=== PATIENT | female | born 1995 | race Caucasian/White ===

== ENCOUNTER → 2018-05-14 11:39 | Outpatient (CLI) | payer MEDICAID, SELFPAY ==
[2018-05-14 15:47] LABS: Color, Urine Yellow (Yellow); Glucose, Dipstick Normal (Normal); Ketone-Dipstick Negative (Negative); Leukocyte Esterase-Dipstick Negative /ul (Negative); Nitrite-Dipstick Negative (Negative); Occult Blood-Urine Negative /ul (Negative); Protein-Dipstick Negative (Negative); Urine Bilirubin Dipstick Negative (Negative); Urine Clarity Sl. Cloudy (Clear); Urine Urobilinogen Normal (Normal)
[2018-05-14 16:05] LABS: Amphetamine Urine VISTA NEGATIVE (<1000 ng/mL); Barbiturate Urine VISTA NEGATIVE (< 200 ng/mL); Benzodiazepine Urine VISTA NEGATIVE (< 200 ng/mL); Cocaine Urine VISTA NEGATIVE (< 300 ng/mL); Ecstacy Urine VISTA NEGATIVE (< 500 ng/mL); Methadone Urine VISTA NEGATIVE (< 300 ng/mL); PCP Urine VISTA NEGATIVE (< 25 ng/mL); THC Urine VISTA POSITIVE (< 50 ng/mL); Vista UDS pH Range 7
[2018-05-14 16:22] LABS: COTININE Drug Screen Positive (<200 ng/mL)
[2018-05-14 16:54] LABS: HIV - WCH Non-Reactive (Nonreactive)
[2018-05-14 17:02] LABS: Thyroid Stim Hormone (TSH) 0.97 uIU/mL (0.358-3.74)
[2018-05-14 17:51] LABS: Chlamydia Trachomatis by PCR Negative (Negative); Neisserai gonorrhoeae by PCR Negative (Negative); Probe Check PASS; Sample Adequacy Control PASS; Specimen Processing Control PASS
[2018-05-16 13:31] LABS: HEPATITIS B SURFACE AG Negative (Negative)
[2018-05-16 13:32] LABS: Hep C Antibodies <0.1 s/co ratio (0.0-0.9)
[2018-05-19 12:13] LABS: HPV Reflexed? NOT INDICATED
[2018-05-21 02:28] LABS: Prenatal RPR NONREACTIVE (NONREACTIVE)
== END ==
PROVIDERS: Visit Provider Obstetrics & Gynecology
DX: Z12.4 Encounter for screening for malignant neoplasm of cervix (principal); Z11.3 Encounter for screening for infections with a predominantly sexual mode of transmission; Z32.01 Encounter for pregnancy test, result positive
CPT/HCPCS: 36415; 80307; 81002; 84443; 86703; 86762; 86803; 87340; 87491; 87591; 88175; G0145

== ENCOUNTER → 2018-08-10 11:38 | Outpatient (CLI) | payer SELFPAY ==
[2018-08-10 14:07] LABS: ALB/GLOB Ratio 0.8 RATIO (0.9-2.4); AST(SGOT) 17 U/L (15-37); Alanine Aminotransfer ALT/SGPT 19 U/L (13-56); Albumin, Serum 3.4 g/dL (3.2-5.0); Alkaline Phosphatase 64 U/L (45-117); Anion Gap 10 (5-15); BUN 5 mg/dL (7-18); BUN/Creat Ratio 10.5 RATIO (10-20); Calcium,Total 8.9 mg/dL (8.5-10.1); Chloride 108 mmol/L (98-107); Creatinine, Serum 0.47 mg/dL (0.55-1.02); EST Glomerular Filtration Rate 170 mL/min (>60); Est Glom Filt Rate - Afr Amer 206 mL/min (>60); Glucose 75 mg/dL (74-106); Potassium 3.6 mmol/L (3.5-5.1); Protein, Total 7.4 g/dL (6.4-8.2); Sodium Level 140 mmol/L (136-145)
== END ==
PROVIDERS: Visit Provider Obstetrics & Gynecology
DX: Z34.82 Encounter for supervision of other normal pregnancy, second trimester (principal); R10.11 Right upper quadrant pain; R11.2 Nausea with vomiting, unspecified
CPT/HCPCS: 36415; 80053

== ENCOUNTER → 2018-10-20 10:27 | Outpatient (CLI) | payer MEDICAID, SELFPAY ==
[2018-10-20 14:01] LABS: Glucose Challenge Gest 1H 50g 72 mg/dL (70-140)
[2018-10-20 14:06] LABS: Hematocrit 38.3 % (37-47); Hemoglobin 12.3 g/dl (12.0-15.0); Mean Corp Hgb Conc 32.1 g/gl (32-36); Mean Corpuscular Hgb 30.9 pg (27.0-32.0); Mean Corpuscular Volume 96.2 fL (81-99); Mean Platelet Vol. 9.6 fl (6.2-12.0); Platelet Count 352 K/mm3 (150-450); RBC Distribution Width CV 12.5 % (11.6-14.6); RBC Distribution Width SD 42.7 fl (35.1-43.9); Red Blood Count 3.98 M/mm3 (4.2-5.4); White Blood Count 12.6 K/mm3 (4.4-11.0)
[2018-10-20 14:07] LABS: Scan Indicated on CBC? Y/N NO
[2018-10-20 14:15] LABS: Amphetamine Urine VISTA NEGATIVE (<1000 ng/mL); Barbiturate Urine VISTA NEGATIVE (< 200 ng/mL); Benzodiazepine Urine VISTA NEGATIVE (< 200 ng/mL); Cocaine Urine VISTA NEGATIVE (< 300 ng/mL); Ecstacy Urine VISTA NEGATIVE (< 500 ng/mL); Methadone Urine VISTA NEGATIVE (< 300 ng/mL); PCP Urine VISTA NEGATIVE (< 25 ng/mL); THC Urine VISTA POSITIVE (< 50 ng/mL); Vista UDS pH Range 6
== END ==
PROVIDERS: Visit Provider Obstetrics & Gynecology
DX: Z34.83 Encounter for supervision of other normal pregnancy, third trimester (principal)
CPT/HCPCS: 36415; 80307; 82950; 85027; 86900

== ENCOUNTER 2018-11-18 16:50 | Outpatient (CLI) | payer MEDICAID, SELFPAY ==
[2018-11-18 17:19] VITALS: BMI 28.5
[2018-11-18 17:45] LABS: Bacteria 0 SEEN /hpf (None Seen); Mucous, Urine 0 SEEN /hpf (<or=2+); Red Blood Cells-Urine 0 SEEN /hpf (0-5); White Blood Cells 0 SEEN /hpf (0-5)
[2018-11-18 17:47] LABS: Color, Urine Yellow (Yellow); Glucose, Dipstick Normal (Normal); Ketone-Dipstick Negative (Negative); Leukocyte Esterase-Dipstick 25 /ul (Negative); Nitrite-Dipstick Negative (Negative); Occult Blood-Urine Negative /ul (Negative); Protein-Dipstick Negative (Negative); Specific Gravity, Urine 1.015 (1.002-1.030); Urine Bilirubin Dipstick Negative (Negative); Urine Clarity Cloudy (Clear); Urine Urobilinogen 4 mg/dl (Normal)
[2018-11-18 17:52] LABS: Squamous Epithelial Cells - UA 0-5 SEEN /hpf (5-10)
[2018-11-18 17:53] LABS: Amorphous Sediment 4+
--- NOTE | 2018-11-30 08:16 | OB.TRI.HP_ITS ---
- Problem List (1) Urinary tract infection Status: Acute Qualifiers: Urinary tract infection type: acute cystitis Hematuria presence: without hematuria Qualified Code(s): N30.00 - Acute cystitis without hematuria History of Present Illness Date of Service: 11/18/18 Was patient seen by the physician?: Yes Reason For Visit: R/O LABOR Date of Service: 11/18/18 Final GAVIN: 12/23/18 Final GAVIN Source: US <20 weeks Gestational age: 35 weeks History of Present Illness: 23yo @ 35wga with c/o lower abdominal and back pain. Allergies No Known Allergies Allergy (Verified 11/25/18 21:55) Laboratory Studies: Laboratory Tests 11/18/18 Range/Units 17:30 Urine Color Yellow (Yellow) Urine Clarity Cloudy (Clear) Urine pH 7.0 (5.0 - 8.0) Ur Specific [place] 1.015 (1.002-1.030) Urine Protein Negative (Negative) mg/dl Urine Glucose (UA) Normal (Normal) mg/dl Urine Ketones Negative (Negative) mg/dl Urine Occult Blood Negative (Negative) /ul Urine Nitrite Negative (Negative) Urine Bilirubin Negative (Negative) mg/dL Urine Urobilinogen 4 H (Normal) mg/dl Ur Leukocyte Esterase 25 H (Negative) /ul Urine RBC 0 SEEN (0-5) /hpf Urine WBC 0 SEEN (0-5) /hpf Ur Squamous Epith Cells 0-5 SEEN (5-10) /hpf Amorphous Sediment 4+ Urine Bacteria 0 SEEN (None Seen) /hpf Urine Mucus 0 SEEN (<or=2+) /hpf Review of Systems Constitutional: Reports: Fatigue. Denies: Fever Cardiovascular: Denies: Chest Pain, Edema Respiratory: Denies: Shortness of Breath Gastrointestinal: Reports: Abdominal Pain, Nausea. Denies: Vomiting Genitourinary: Reports: Frequency. Denies: Dysuria Physical Exam General: Alert, Oriented x3, Cooperative, No apparent distress HEENT: Atraumatic, Normocephalic Cardiovascular: Regular rate, Regular Rhythm, Normal S1, Normal S2 Lungs: Clear to auscultation, Normal air movement Abdomen: Soft, Non Tender, Non-Distended, Gravid, - - +CVA tenderness Extremities:: No edema Neurological: Neuro grossly intact Estimated gestational size: Appropriate for gestational size NST - FHR Rate Baby A Baseline: 140 Variability:: Moderate Accelerations:: 15 x 15 NST Reactive:: Yes FHR Category:: Category I Uterine Activity:: 1/10 min Impression/Plan 23yo @ 35 wga with UTI -U/A neg, however exam c/w UTI, f/u culture -Reactive NST -Rx Keflex -f/u in office as scheduled Code Visit Office Visits / Consults: [id number] OV L3 Est
== END 2018-11-18 18:00 | disposition home or self-care (01) ==
LOC: WPOUT 17:05 → WP 17:06
PROVIDERS: Referring Provider Obstetrics & Gynecology; Visit Provider Obstetrics & Gynecology
DX: O23.13 Infections of bladder in pregnancy, third trimester (principal); N30.00 Acute cystitis without hematuria; Z3A.35 35 weeks gestation of pregnancy
CPT/HCPCS: 59025; 59050; 81001; 87086; 87088; 99218; G0378

== ENCOUNTER → 2018-11-25 17:50 | Outpatient (CLI) | payer MEDICAID, SELFPAY ==
[2018-11-18 17:19] VITALS: BMI 28.5
== END ==
PROVIDERS: Referring Provider Obstetrics & Gynecology; Visit Provider Obstetrics & Gynecology
DX: Z36.85 Encounter for antenatal screening for Streptococcus B (principal)
CPT/HCPCS: 87081

== ENCOUNTER 2018-11-25 21:15 | Outpatient (CLI) | payer MEDICAID, SELFPAY ==
[2018-11-25 21:45] LABS: Red Blood Cells-Urine 0 SEEN /hpf (0-5)
[2018-11-25 21:47] LABS: Color, Urine Yellow (Yellow); Glucose, Dipstick Normal (Normal); Leukocyte Esterase-Dipstick 500 /ul (Negative); Nitrite-Dipstick Negative (Negative); Occult Blood-Urine Negative /ul (Negative); Protein-Dipstick 30 mg/dl (Negative); Urine Clarity Sl. Cloudy (Clear); Urine Urobilinogen 4 mg/dl (Normal)
[2018-11-25 21:53] VITALS: BMI 29.0
[2018-11-25 21:58] LABS: Urine Bilirubin Dipstick 1 mg/dL (Negative)
[2018-11-25 21:59] LABS: Bacteria RARE /hpf (None Seen); Ketone-Dipstick 150 mg/dl (Negative); Mucous, Urine 1+ /hpf (<or=2+); Squamous Epithelial Cells - UA 5-10 SEEN /hpf (5-10); White Blood Cells 0-5 SEEN /hpf (0-5)
[2018-11-25 22:14] LABS: ROM Internal Control Test YES-OK TO RESULT pt. (Internal QC); ROM Patient Test Negative (Negative); Record Kit Lot#, ROM+ J7836
[2018-11-25] MEDS: Acetaminophen 500 MG Tablet 1000 MG PO (22:45)
[2018-11-25 22:52] LABS: Absolute Lymphocyte Count 2.27 X10^3/ul (0.83-4.51); Absolute Neutrophil Count 10.6 X10^3/uL (2.0-7.7); Basophil# 0.02 X10^3/uL; Basophil% 0.1 % (0-1); Eosinophil# 0.05 X10^3/uL; Eosinophils% 0.4 % (0-5); Hematocrit 35.3 % (37-47); Hemoglobin 11.6 g/dl (12.0-15.0); Lymphocyte # 2.27 X10^3/ul (4.0); Lymphocyte % 16.3 % (19-41); Mean Corp Hgb Conc 32.9 g/gl (32-36); Mean Corpuscular Hgb 30.4 pg (27.0-32.0); Mean Corpuscular Volume 92.7 fL (81-99); Mean Platelet Vol. 9.3 fl (6.2-12.0); Monocyte# 0.88 X10^3/uL; Monocyte% 6.3 % (0-10); Neutrophil # 10.64 X10^3/uL (2.7-7.7); Neutrophil % 76.7 % (47-70); Platelet Count 319 K/mm3 (150-450); RBC Distribution Width CV 13.2 % (11.6-14.6); RBC Distribution Width SD 44.6 fl (35.1-43.9); Red Blood Count 3.81 M/mm3 (4.2-5.4); White Blood Count 13.9 K/mm3 (4.4-11.0)
[2018-11-25 22:55] LABS: POSITIVE COUNT NO; POSITIVE DIFFERENTIAL NO; POSITIVE MORPHOLOGY NO
[2018-11-25 23:07] LABS: ALB/GLOB Ratio 0.8 RATIO (0.9-2.4); AST(SGOT) 13 U/L (15-37); Alanine Aminotransfer ALT/SGPT 13 U/L (13-56); Albumin, Serum 2.9 g/dL (3.2-5.0); Alkaline Phosphatase 118 U/L (45-117); Anion Gap 7 (5-15); BUN 10 mg/dL (7-18); BUN/Creat Ratio 18.2 RATIO (10-20); Calcium,Total 8.5 mg/dL (8.5-10.1); Chloride 106 mmol/L (98-107); Creatinine, Serum 0.55 mg/dL (0.55-1.02); EST Glomerular Filtration Rate 143 mL/min (>60); Est Glom Filt Rate - Afr Amer 173 mL/min (>60); Estimated Creatinine Clearance 123.67 ml/min; Globulin 3.8 g/dL (2.2-4.2); Glucose 83 mg/dL (74-106); Potassium 3.3 mmol/L (3.5-5.1); Protein, Total 6.7 g/dL (6.4-8.2); Sodium Level 137 mmol/L (136-145)
[2018-11-25] MEDS: Dextrose 5%/0.9% NaCl 1,000 ML 250 ML IV (23:10)
--- NOTE | 2018-11-30 08:33 | OB.TRI.HP_ITS ---
- Problem List (1) Dehydration during Status: Acute (2) 36 weeks gestation of Status: Acute (3) Decreased movement Status: Acute Qualifiers: Trimester: third trimester History of Present Illness Date of Service: 11/25/18 Was patient seen by the physician?: No Reason For Visit: DF Final GAVIN: 12/23/18 Final GAVIN Source: US <20 weeks Gestational age: 36 Weeks and 0 Days History of Present Illness: 23yo G2 @ 36wga with c/o decreased movement, achiness, lower abdominal and back pain. Allergies No Known Allergies Allergy (Verified 11/25/18 21:55) Laboratory Studies: Laboratory Tests 11/25/18 11/25/18 11/25/18 Range/Units 22:37 22:37 21:42 WBC 13.9 H (4.4-11.0) K/mm3 RBC 3.81 L (4.2-5.4) M/mm3 Hgb 11.6 L (12.0-15.0) g/dl Hct 35.3 L (37-47) % MCV 92.7 (81-99) fL MCH 30.4 (27.0-32.0) pg MCHC 32.9 (32-36) g/gl RDW 13.2 (11.6-14.6) % RDW Differential 44.6 H (35.1-43.9) fl Plt Count 319 (150-450) K/mm3 MPV 9.3 (6.2-12.0) fl Immature Gran % (Auto) 0.200 (0.0-0.9) % Neut % (Auto) 76.7 H (47-70) % Lymph % (Auto) 16.3 L (19-41) % [place] % (Auto) 6.3 (0-10) % Eos % (Auto) 0.4 (0-5) % Baso % (Auto) 0.1 (0-1) % Absolute Neuts (auto) 10.6 H (2.0-7.7) X10^3/uL Absolute Lymphs (auto) 2.27 (0.83-4.51) X10^3/ul Total Counted Not Reportable Sodium 137 (136-145) mmol/L Potassium 3.3 L (3.5-5.1) mmol/L Chloride 106 (98-107) mmol/L Carbon Dioxide 24.0 (21.0-32.0) mmol/L Anion Gap 7 (5-15) BUN 10 (7-18) mg/dL Creatinine 0.55 (0.55-1.02) mg/dL Estim Creat Clear Calc 123.67 ml/min Est GFR (MDRD) Af Amer 173 (>60) mL/min Est GFR (MDRD) Non-Af 143 (>60) mL/min BUN/Creatinine Ratio 18.2 (10-20) RATIO Glucose 83 (74-106) mg/dL Calcium 8.5 (8.5-10.1) mg/dL Total Bilirubin 0.30 (0.20-1.00) mg/dL AST 13 L (15-37) U/L ALT 13 (13-56) U/L Alkaline Phosphatase 118 H (45-117) U/L Total Protein 6.7 (6.4-8.2) g/dL Albumin 2.9 L (3.2-5.0) g/dL Globulin 3.8 (2.2-4.2) g/dL Albumin/Globulin Ratio 0.8 L (0.9-2.4) RATIO Urine Color (Yellow) Urine Clarity (Clear) Urine pH (5.0 - 8.0) Ur Specific [place] (1.002-1.030) Urine Protein (Negative) mg/dl Urine Glucose (UA) (Normal) mg/dl Urine Ketones (Negative) mg/dl Urine Occult Blood (Negative) /ul Urine Nitrite (Negative) Urine Bilirubin (Negative) mg/dL Urine Urobilinogen (Normal) mg/dl Ur Leukocyte Esterase (Negative) /ul Urine RBC (0-5) /hpf Urine WBC (0-5) /hpf Ur Squamous Epith Cells (5-10) /hpf Urine Bacteria (None Seen) /hpf Urine Mucus (<or=2+) /hpf Vag Amniotic Fld Detect Negative (Negative) 11/25/18 Range/Units 21:30 WBC (4.4-11.0) K/mm3 RBC (4.2-5.4) M/mm3 Hgb (12.0-15.0) g/dl Hct (37-47) % MCV (81-99) fL MCH (27.0-32.0) pg MCHC (32-36) g/gl RDW (11.6-14.6) % RDW Differential (35.1-43.9) fl Plt Count (150-450) K/mm3 MPV (6.2-12.0) fl Immature Gran % (Auto) (0.0-0.9) % Neut % (Auto) (47-70) % Lymph % (Auto) (19-41) % [place] % (Auto) (0-10) % Eos % (Auto) (0-5) % Baso % (Auto) (0-1) % Absolute Neuts (auto) (2.0-7.7) X10^3/uL Absolute Lymphs (auto) (0.83-4.51) X10^3/ul Total Counted Sodium (136-145) mmol/L Potassium (3.5-5.1) mmol/L Chloride (98-107) mmol/L Carbon Dioxide (21.0-32.0) mmol/L Anion Gap (5-15) BUN (7-18) mg/dL Creatinine (0.55-1.02) mg/dL Estim Creat Clear Calc ml/min Est GFR (MDRD) Af Amer (>60) mL/min Est GFR (MDRD) Non-Af (>60) mL/min BUN/Creatinine Ratio (10-20) RATIO Glucose (74-106) mg/dL Calcium (8.5-10.1) mg/dL Total Bilirubin (0.20-1.00) mg/dL AST (15-37) U/L ALT (13-56) U/L Alkaline Phosphatase (45-117) U/L Total Protein (6.4-8.2) g/dL Albumin (3.2-5.0) g/dL Globulin (2.2-4.2) g/dL Albumin/Globulin Ratio (0.9-2.4) RATIO Urine Color Yellow (Yellow) Urine Clarity Sl. Cloudy (Clear) Urine pH 6.0 (5.0 - 8.0) Ur Specific [place] 1.020 (1.002-1.030) Urine Protein 30 H (Negative) mg/dl Urine Glucose (UA) Normal (Normal) mg/dl Urine Ketones 150 H (Negative) mg/dl Urine Occult Blood Negative (Negative) /ul Urine Nitrite Negative (Negative) Urine Bilirubin 1 H (Negative) mg/dL Urine Urobilinogen 4 H (Normal) mg/dl Ur Leukocyte Esterase 500 H (Negative) /ul Urine RBC 0 SEEN (0-5) /hpf Urine WBC 0-5 SEEN (0-5) /hpf Ur Squamous Epith Cells 5-10 SEEN (5-10) /hpf Urine Bacteria RARE (None Seen) /hpf Urine Mucus 1+ (<or=2+) /hpf Vag Amniotic Fld Detect (Negative) Physical Exam Vitals: avss NST - FHR Rate Baby A Baseline: 130 Variability:: Moderate Accelerations:: 15 x 15 Decelerations:: None NST Reactive:: Yes FHR Category:: Category I Uterine Activity:: 0-1/10 min Impression/Plan 23yo @ 36wga with dehydration, Cat I FHR -FM noted with rest -IVF hydration administered -d/c home
== END 2018-11-25 23:57 | disposition home or self-care (01) ==
LOC: WPOUT 21:27 → WP 21:28
PROVIDERS: Visit Provider Obstetrics & Gynecology
DX: O99.89 Other specified diseases and conditions complicating pregnancy, childbirth and the puerperium (principal); E86.0 Dehydration; O36.8130 Decreased fetal movements, third trimester, not applicable or unspecified; Z3A.36 36 weeks gestation of pregnancy; Z36.85 Encounter for antenatal screening for Streptococcus B
CPT/HCPCS: 96360; 96361; 36415; 59025; 59050; 80053; 81001; 84112; 85025; 87081; 94760; 99218; J7040; G0378

== ENCOUNTER 2018-12-08 16:30 | Inpatient (IN) | payer MEDICAID, SELFPAY ==
[2018-12-08] VITALS (16 sets, daily range): BP systolic 104–124; BP diastolic 64–71; PULSE 88–102; RESP 16–18; TEMP 36.3–37.7; O2SAT 97–100; BMI 27.1
--- NOTE | 2018-12-08 17:10 | PCM.HP.OB ---
- Problem List (1) 37 weeks gestation of Status: Acute (2) IUGR (intrauterine growth restriction) Status: Acute (3) Decreased movement Status: Acute Qualifiers: Trimester: third trimester History Date of Admission: 12/12/15 Final GAVIN: 12/23/18 Final GAVIN Source: US <20 weeks Gestational age: 37 Weeks and 6 Days History of this : This is a 23 year-old, G [2], P [1], at 37 6/7 weeks gestational age with c/o decreased movement. complicated by IUGR with hx retroplacental clot. Surgical History: Surgical History (Last Updated 12/08/18 @ 17:24 by Christa Mcneal MD) Previous section Z98.891 Allergies No Known Allergies Allergy (Verified 12/08/18 16:43) Home Medications: Home Medications RX: Pnv No.103/Folic/Om3s/Fish Oil [ Gummies] 1 each PO DAILY 11/26/15 Smoking Status: Current every day smoker Alcohol: None Number of Fetus(es): 1 Heart Tracin, moderate variability, + accelerations, no decelerations TOCO Analysis: 2/10 min History Past Pregnancies: Past Pregnancies Delivery Date Name GA/Weeks Outcome Route Weight Gender Labor Length Anesthesia Delivery Location Provider FOB 12/13/2015 Dipesh 39 Living C/S 6lb 11oz MALE 48 Epidural [facility] Charitopaulina Torres Labs: Mom's Problem List Problem Status Onset Code Encounter for sterilization Acute Z30.2 Decreased movement Acute O36.8190 37 weeks gestation of Acute Z3A.37 IUGR (intrauterine growth restriction) Acute Mom's Labs & Results 12/08/18 12/08/18 12/08/18 17:25 17:25 18:00 WBC 12.6 H RBC 4.08 L Hgb 12.6 Hct 38.0 MCV 93.1 MCH 30.9 MCHC 33.2 RDW 13.3 RDW Differential 45.1 H Plt Count 360 MPV 9.5 Immature Gran % (Auto) 0.200 Neut % (Auto) 77.7 H Lymph % (Auto) 14.7 L [place] % (Auto) 7.0 Eos % (Auto) 0.2 Baso % (Auto) 0.2 Absolute Neuts (auto) 9.8 H Absolute Lymphs (auto) 1.85 Total Counted Not Reportable Rubella IgG Antibody 83.9 Blood Type B POSITIVE Antibody Screen NEGATIVE Course Did the patient receive Yes care? Labs Blood Type: B RH: POSITIVE RPR/VDRL/Syphilis Nonreactive HbSAg Negative Date Done: 05/14/18 Chlamydia Negative Gonorrhea Negative HIV/AIDS Non-Reactive Group B Strep: Negative Other Lab Procedures/Results/ Rubella not done. Will draw on admission Comments: Current Obstetrical History Gestational Diabetes No Incompetent Cervix No Infertility No IUGR Yes Macrosomia No Hypertension/Pre-eclampsia No Placenta Previa/Abruption Yes: at beginning of PTL/PROM No Uterine anomaly No Oligohydramnios No Polyhydramnios No Multiple gestation No Past Medical History Asthma No Diabetes No Hypertension No Heart disease No Mitral valve prolapse No Neurologic/Seizure disorder/ No Migraines Kidney disease No Liver disease No Varicosities No Clotting disorders/Hx of DVT No Thyroid Dysfunction No Other medical diseases No Psychiatric disorders Yes: anxiety-no meds Major trauma No Abnormal PAP smear No Sleep apnea No Mammogram in the last 2 years No Enter DETAILS of medical bloot clot behind placenta history Medications Taken During Last Date/Time of Medication 11/24 Taken: [keflex] Reason for taking medication [ antibiotics for UTI keflex] Social History Marital Status: SINGLE Alleged father Brian Tuttle, age 22 Hx Smoking Yes Smoking Status Current every day smoker Substance Use Type Marijuana How long have you used marijuana use off and on for a couple years substances (years)? What date/time did you last last used marijuana in beginning of 3rd use any of the above? trimester Expected Delivery Method: Scheduled Section Describe any other labor & delivery plans:: Bilateral tubal ligation Number of Visits: 10 Review of Systems Constitutional: Reports: Fatigue Gastrointestinal: Reports: Abdominal Pain, Nausea, Vomiting Gynecological: Reports: - - contactions intermittent. Denies: Vaginal bleeding Physical Exam Vitals: AVSS General: Alert, Oriented x3, Cooperative, No apparent distress HEENT: Atraumatic, Normocephalic Cardiovascular: Regular rate, Regular Rhythm, Normal S1, Normal S2 Lungs: Clear to auscultation, Normal air movement Abdomen: Soft, Non-Distended, - - + left incisional tenderness Neurological: Neuro grossly intact Estimated gestational size: Small for gestational age Presentation: Cephalic Assessment/Plan All Active Problems Encounter for sterilization (Acute) Decreased movement (Acute) 37 weeks gestation of (Acute) IUGR (intrauterine growth restriction) (Acute) This is a 23 year-old, G [2], P [1], at 37 6/7 weeks gestational age with decreased FM, IUGR and retroplacental clot. -Presentation reviewed with HEATH Ortiz - will plan to proceed with delivery at this time. -Patient desires BTL, LARC declined. Tubal papers signed prior. Again reviewed risk for tubal failure approximately 1% or less over time, posttubal menstrual changes, risk for ectopic . -Discussed risks including, but not limited to pain, bleeding complications such as hemorrhage, infection, scarring, bowel injury, bladder/ureteral injury, VTE, nerve injury, need for blood transfusion or further surgery possibly including dilation and curettage, hysterectomy. risks for laceration, TTN reviewed, also discussed risk for poor feeding, hypoglycemia given IUGR and late status. Blood transfusion acceptable. -Consents signed and reviewed, patient given opportunity to ask questions and questions answered to their satisfaction. -Anesthesiology notified. -Rubella ordered
[2018-12-08] MEDS: Lactated Ringers 1,000 ML 999 ML IV (17:30)
[2018-12-08 17:44] LABS: Absolute Lymphocyte Count 1.85 X10^3/ul (0.83-4.51); Absolute Neutrophil Count 9.8 X10^3/uL (2.0-7.7); Basophil# 0.02 X10^3/uL; Basophil% 0.2 % (0-1); Eosinophil# 0.02 X10^3/uL; Eosinophils% 0.2 % (0-5); Hemoglobin 12.6 g/dl (12.0-15.0); Lymphocyte # 1.85 X10^3/ul (4.0); Lymphocyte % 14.7 % (19-41); Mean Corp Hgb Conc 33.2 g/gl (32-36); Mean Corpuscular Hgb 30.9 pg (27.0-32.0); Mean Corpuscular Volume 93.1 fL (81-99); Mean Platelet Vol. 9.5 fl (6.2-12.0); Monocyte# 0.88 X10^3/uL; Neutrophil % 77.7 % (47-70); Platelet Count 360 K/mm3 (150-450); RBC Distribution Width CV 13.3 % (11.6-14.6); RBC Distribution Width SD 45.1 fl (35.1-43.9); Red Blood Count 4.08 M/mm3 (4.2-5.4); White Blood Count 12.6 K/mm3 (4.4-11.0)
[2018-12-08 18:02] LABS: POSITIVE COUNT NO; POSITIVE DIFFERENTIAL NO; POSITIVE MORPHOLOGY NO
[2018-12-08] MEDS: Sodium Citrate/Citric Acid 30 ML UDC PO (18:11)
[2018-12-08] MEDS: Cefazolin 2 GM in 0.9% Normal Saline 100 ML IV (18:17)
[2018-12-08] MEDS: Lactated Ringers 1,000 ML 100 ML IV ×2 (19:30→23:56)
--- NOTE | 2018-12-08 19:45 | PLAC_PTH ---
PATIENT: AKIRA CURRAN LOC: WP U#:[id number] AGE/SX: 23/F ROOM: WP010 RE12/08/[address]: Dr. Christa Curran MD : 1995 BED: 1 DIS: 12/11/2018 SPEC #: [id number] RECD: 12/09/18 03:32 STATUS: JULI OC REQ #: [id number] LETICIA: 12/08/18 19:[address]: Christa Foreman DEPT: SURGICAL PATHOLOGY RECD BY: Josiah Marshall ENTERED: 12/09/18 09:31 SP TYPE: PLACENTA OTHR DR: No Primary Care Phys Tissues: A - Placenta, NOS B - Fallopian tube Procedures: Surgery Specimen Level II Surgery Specimen Level V HEADER OPERATION: Repeat section PRE-OP DIAGNOSIS: IUGR TISSUE SUBMITTED: A - Placenta, B - Fallopian tubes MICROSCOPIC DIAGNOSIS A. Davila placenta (445 gm): Umbilical cord - trivascular with no inflammation. Placental membranes - no pathologic change. Placental disc - focal organizing hemorrhage, intravillous congestion and mildly increased microcalcifications. B. Right and left fallopian tubes, bilateral partial salpingectomies: Two complete segments of fallopian tubes with no pathologic change. AM:tasha 12/13/18 MICROSCOPIC DESCRIPTION Slides are reviewed. GROSS DESCRIPTION A - SPECIMEN: PLACENTA / CLINICAL INFORMATION: A. Weight: 2.495 kg B. Gestational Age: 37 weeks C. Sex: Male PLACENTAL WEIGHT (POST FIXATION): 445 gm PLACENTAL DIMENSIONS: 19.5 x 17.5 x 2.5 cm PLACENTAL SHAPE: Usual ovoid PLACENTAL WEIGHT FOR GESTATIONAL AGE: Within 10-99th percentile MEMBRANES - Present A. Insertion: Marginal B. Site of rupture from edge: 2 cm from edge of placental disc C. Color of membrane: Opaque to translucent D. Abnormalities: None UMBILICAL CORD - Present A. Color: Xie-giord[place] B. Insertion: Marginal C. Length: 10 cm D. Diameter: 1.2 cm E. Number of vessels: Three F. Abnormalities: None PLACENTAL DISC - Present A. Color of surface: Bluish-[place] B. surface abnormalities: Moderate xie subchorionic plaque (peripheral) C. Maternal cotyledons: Intact with minimal tears D. Attached retro placental clot: No clot E. Cut surface: Dark red and spongy F. Lesions: None G. Separate clot: Absent SECTIONS SUBMITTED: 1. Umbilical cord, end and membranes 2. Cord, maternal end and membranes 3. Central placenta, surface 4. Peripheral placenta 5. Central placenta, maternal surfaces CE:tasha 12/10/18 B - Received is one container labeled with the patient's name and designated bilateral fallopian tubes, suture right tube. The specimen consists of two tubular pieces of xie soft tissue with the right identified with a suture. The right fallopian tube measures 1.5 cm in length and 0.7 cm in diameter and is inked black. The left fallopian tube measures 1 cm in length and 0.6 cm in diameter. The entire specimen is submitted in one cassette. Both pieces will be sectioned at the time of embedding. / SJ:tasha 12/09/18 TC:5 CPT: 88055, 78174 x2
[2018-12-08 19:53] LABS: Rubella IgG 83.9 IU/mL
--- NOTE | 2018-12-08 19:56 | OP.PCM_ITS ---
Problem List (1) 37 weeks gestation of Status: Acute (2) IUGR (intrauterine growth restriction) Status: Acute (3) Decreased movement Status: Acute Qualifiers: Trimester: third trimester (4) Encounter for sterilization Status: Acute Report of Operation Pre-Operative Diagnosis: 37 6/7wga, decreased movement, IUGR, sterilization request Post-Operative Diagnosis: 37 6/7wga, decreased movement, IUGR, sterilization request Surgery/Procedure Performed:: Repeat low transverse section. Bilateral tubal ligation assistant professor of geography: Ama Duran Type of Anesthesia:: General Drains: Urine output 200ml Delivery Classification: Scheduled Final GAVIN: 12/23/18 Final GAVIN Source: US <20 weeks Gestational age: 37 Weeks and 6 Days doctor who attended delivery (if requested by OB): Hamida Hill Indications: 23yo @ 37 6/7wga with hx prior section, IUGR, retroplacental clot presented with decreased movement. Patient had recurrent complaint of decreased movement. Following discussion with MFM, I reviewed [facility] recommendations to deliver with patient and she desired to proceed with repeat section and sterilization procedure. Procedural risks, benefits, indications were reviewed including risk for tubal failure approximately 1% or less, post tubal menstrual changes, ectopic . Patient declined alternative contraceptives. Indications for : Repeat Elective , Desires elective sterilization, Nonreassuring Status, - - IUGR with decreased movement Description of Procedure: The patient was taken to the operating room and spinal analgesia was attempted, however patient poorly tolerated attempts. Following counseling, she opted to proceed with general anesthesia. Reviewed risk for hemorrhage, maternal aspiration and respiratory depression associated with general anesthesia. She is placed in a dorsal supine position. The perineum and abdomen were prepped and draped in sterile fashion, then the patient was induced under anesthesia and intubated. A Pfannenstiel incision was made using a scalpel and brought down to incise the subcutaneous tissue and rectus fascia at the midline. Subcutaneous tissue was bluntly dissected off the fascia laterally. The fascial incision was dissected laterally and cephalad using curved Gallardo scissors. The superior leaflet of the rectus fascia was grasped using Antoni clamps and bluntly dissected and sharply dissected from the underlying rectus muscle. In a similar fashion the inferior rectus fascia was dissected from the underlying muscle. The rectus muscles were bluntly at the midline. The peritoneum was identified and entered [sharply]. The bladder blade was placed into the abdomen and the vesicouterine peritoneal fold identified. The fold was incised and a bladder flap created. Bladder blade was then repositioned to the abdomen. A low transverse hysterotomy was made using the [Metzenbaum scissors] to level of the membranes. The hysterotomy was extended bluntly cephalad and caudad. The membranes were then ruptured revealing clear fluid. The head was elevated and brought to the level of the hysterotomy and the infant delivered revealing vigorous [male] . The cord was doubly clamped and cut. The was passed to awaiting [nursery personnel]. The placenta was [expressed] from the uterus and appeared intact on inspection. The uterus was exteriorized and cleared of debris. Bladder blade was repositioned in the abdomen the hysterotomy was then repaired using 0 Vicryl running lock suture. Attention was turned to the right adnexa and the ampullary tube was grasped using a [place] clamp. The mesosalpinx was opened using the Bovie and the proximal and distal segments of the ampullary tube were ligated using 2-0 plain gut. An approximately 2cm segment of intervening tube was excised. In similar fashion, [place] tubal ligation was performed on the left side. Partial salpingectomy sites showed good hemostasis. The posterior culdesac was cleared of debris and the uterus and adnexae returned to the abdomen. The bladder blade was again repositioned and the hysterotomy repair was also hemostatis. The bladder blade was remove and the anterior cul-de-sac was cleared of debris. The peritoneum was reapproximated using 2-0 Vicryl running suture. The rectus fascia was closed using 0 Stratafix. The subcutaneous tissue was reapproximated using 2-0 Vicryl. The skin was closed using 4-0 Monocryl subcuticularly by the BOXING INSTRUCTOR under my supervision. A Mepilex occlusive dressing was placed over the incision. The fundus was firm. The patient was then transferred to the recovery room without complication. Sponge, instrument, and needle counts were correct ?2. Amniotic Membrane Rupture Type: Artificial Amniotic Fluid Description: Clear Placenta Disposition: Sent to Pathology Specimen(s) sent to pathology: 1. placenta, 2. bilateral tubal segments Drain: Alejandro to straight drain Fluids Replaced: 2000 ml Cord Entanglement: None Nuchal Cord Compression: Without compression Cord Vessel Description: 3 Vessels Esitmated Blood Loss (ml): 700 Gender: Male (1 minute): 8 (5 minute): 8 Delayed cord clamping: No Pre-op Antibiotic Given: Ancef 2 grams IV x1 Pt instructed on risks of surgery: Bleeding, Anesthesia Risks, Infection, Injury to surrounding structure(s) including bowel and bladder, Availability of other non-permanent control options Complications: None - Admit VTE Documentation VTE Present on Admission: No VTE Mechan Device Prophylaxis: SCD's VTE Pharm Prophylaxis ordered?: No
--- NOTE | 2018-12-08 20:01 | PCM.DCCSEC ---
Discharge Diet: No Restrictions Discharge Activity: Return to Normal Activity, May not drive while taking narcotic pain medications., May Shower May resume sexual activity in: 4-6 weeks Lifting Restrictions: 10 lb Call your doctor if your incision/area has: Foul Smelling Discharge Suture Line Care: Avoid Pulling/Pushing Remove Dressing in (days):: 5 Cleanse incision/area with: Soap & Water Additional Instructions: If you experience any of the following, contact your healthcare provider. Bleeding that soaks a pad every hour for 2 hours Fever 100.4 or higher Unrelieved incision or abdominal pain Swelling, redness, discharge or bleeding from your incision or episiotomy site Your incision begins to separate Problems urinating (including inability to urinate or burning while urinating). Visual changes Severe headache Flu-like symptoms Pain or redness in one of both of your breasts Pain, warmth, tenderness or swelling in your legs, especially the calf area Frequent nausea and vomiting Symptoms of depression or anxiety If you experience any of the following, call 911 or go to the nearest Emergency Room. Chest pain Problems breathing Seizure activity Partial or complete paralysis of a body part, slurred speech, weakness or drooping of the face, or a sudden inability to walk or hold your balance Allergies/Adverse Reactions: Allergies No Known Allergies Allergy (Verified 12/08/18 16:43) Medications to take at Discharge Pnv No.103/Folic/Om3s/Fish Oil [ Gummies] 1 each PO DAILY 11/26/15 Docusate Sodium [Colace] 100 mg PO BID PRN PRN #60 capsule 12/09/18 Oxycodone [Oxyir] 5 mg PO Q4H PRN PRN 7 Days #28 tablet 12/09/18 The following prescriptions were given: Oxycodone [Oxyir] 5 mg PO Q4H PRN PRN 7 Days #28 tablet PRN Reason: Severe Pain (6-06/16) Docusate Sodium [Colace] 100 mg PO BID PRN PRN #60 capsule PRN Reason: Constipation Follow-Up: Call to make an appointment with your doctor for an incision check in 1-2 weeks. You will also need a 6 week post- follow up appointment. Test results from this visit will be discussed in further detail at your follow-up appointment, if applicable. Please Follow Up With: Lance Stockton MD When: 1-2 weeks for incision check and in 6 weeks for visit Primary Care Physician: Care Physician,No Primary [Primary Care Provider] -
--- NOTE | 2018-12-08 20:05 | DCINST_ITS ---
Discharge Diet: No Restrictions Discharge Activity: Return to Normal Activity, May not drive while taking narcotic pain medications., May Shower May resume sexual activity in: 4-6 weeks Lifting Restrictions: 10 lb Call your doctor if your incision/area has: Foul Smelling Discharge Suture Line Care: Avoid Pulling/Pushing Remove Dressing in (days):: 5 Cleanse incision/area with: Soap & Water Additional Instructions: If you experience any of the following, contact your healthcare provider. * Bleeding that soaks a pad every hour for 2 hours * Fever 100.4 or higher * Unrelieved incision or abdominal pain * Swelling, redness, discharge or bleeding from your incision or episiotomy site * Your incision begins to separate * Problems urinating (including inability to urinate or burning while urinating). * Visual changes * Severe headache * Flu-like symptoms * Pain or redness in one of both of your breasts * Pain, warmth, tenderness or swelling in your legs, especially the calf area * Frequent nausea and vomiting * Symptoms of depression or anxiety If you experience any of the following, call 911 or go to the nearest Emergency Room. * Chest pain * Problems breathing * Seizure activity * Partial or complete paralysis of a body part, slurred speech, weakness or drooping of the face, or a sudden inability to walk or hold your balance Allergies/Adverse Reactions: Allergies No Known Allergies Allergy (Verified 12/08/18 16:43) Medications to take at Discharge Pnv No.103/Folic/Om3s/Fish Oil [ Gummies] 1 each PO DAILY 11/26/15 Docusate Sodium [Colace] 100 mg PO BID PRN PRN #60 capsule 12/09/18 Oxycodone [Oxyir] 5 mg PO Q4H PRN PRN 7 Days #28 tablet 12/09/18 The following prescriptions were given: Oxycodone [Oxyir] 5 mg PO Q4H PRN PRN 7 Days #28 tablet PRN Reason: Severe Pain (-06/16) Docusate Sodium [Colace] 100 mg PO BID PRN PRN #60 capsule PRN Reason: Constipation Follow-Up: Call to make an appointment with your doctor for an incision check in 1-2 weeks. You will also need a 6 week post- follow up appointment. Test results from this visit will be discussed in further detail at your follow- up appointment, if applicable. Please Follow Up With: Lance Stockton MD When: 1-2 weeks for incision check and in 6 weeks for visit Primary Care Physician: Care Physician,No Primary [Primary Care Provider] -
[2018-12-08] MEDS: HYDROmorphone 0.5 MG/0.5 ML SYRINGE IV (23:57)
[2018-12-09] VITALS (7 sets, daily range): BP systolic 93–124; BP diastolic 54–82; PULSE 83–103; RESP 15–18; TEMP 36.6–37.4; O2SAT 95–99
[2018-12-09 03:39] LABS: Pathology Specimen OB SEE PATHOLOGY REPORT
[2018-12-09 03:49] LABS: Pathology Specimen OB SEE PATHOLOGY REPORT
[2018-12-09] MEDS: HYDROmorphone 0.5 MG/0.5 ML SYRINGE IV (03:50)
[2018-12-09] MEDS: Ketorolac 30 MG/ML Syringe IV (05:56)
[2018-12-09 06:06] LABS: Hematocrit 30.9 % (37-47); Hemoglobin 10.1 g/dl (12.0-15.0); Mean Corp Hgb Conc 32.7 g/gl (32-36); Mean Corpuscular Hgb 30.4 pg (27.0-32.0); Mean Corpuscular Volume 93.1 fL (81-99); Mean Platelet Vol. 9.4 fl (6.2-12.0); Platelet Count 277 K/mm3 (150-450); Red Blood Count 3.32 M/mm3 (4.2-5.4); White Blood Count 12.6 K/mm3 (4.4-11.0)
[2018-12-09 06:10] LABS: Scan Indicated on CBC? Y/N NO
[2018-12-09] MEDS: Lactated Ringers 1,000 ML 100 ML IV (06:41)
--- NOTE | 2018-12-09 08:45 | PCM.PN.OB ---
Patient Problems: Active and Suspected Problems Encounter for sterilization (Acute) Decreased movement (Acute) 37 weeks gestation of (Acute) IUGR (intrauterine growth restriction) (Acute) Subjective: Reports back is sore at attempted spinal site. Incisional pain minimal. No flatus yet. Infant nursing well. Denies heavy lochia. Tolerates regular diet s nausea or vomiting. Objective: avss - Physical Exam General: Alert, Oriented x3, Cooperative, No apparent distress HEENT: Atraumatic, Normocephalic Lungs: Clear to auscultation, No rhonchi Cardiovascular: Regular rate, Regular Rhythm, Normal S1, Normal S2, No murmurs Abdomen: Bowel Sounds Present, Soft, Non Tender, Non-Distended, - - Lochia scant, fundus firm and nontender Extremities: No edema, No Calf Tenderness Neurological: Neuro grossly intact Psych/Mental Status: Normal Affect, Appropriate, Alert and oriented to time, place, person, mood and affect Vital Signs Temp Pulse Resp BP Pulse Ox 98.0 F 93 18 95/66 98 12/09/18 08:00 12/09/18 08:00 12/09/18 08:00 12/09/18 08:00 12/09/18 08:00 Oxygen Delivery Method Room Air Weight: 71.9 kg Body Mass Index (BMI) 27.1 Intake and Output for Last 24 Hours 12/07/18 12/08/18 12/09/18 23:59 23:59 23:59 Intake Total 2306 / 2306 2086 / 2086 Output Total 500 / 500 1050 / 1050 Balance 1806 / 1806 1036 / 1036 Laboratory Tests Past 24 Hrs 12/08/18 12/08/18 12/08/18 17:25 17:25 18:00 WBC 12.6 H RBC 4.08 L Hgb 12.6 Hct 38.0 MCV 93.1 MCH 30.9 MCHC 33.2 RDW 13.3 RDW Differential 45.1 H Plt Count 360 MPV 9.5 Immature Gran % (Auto) 0.200 Neut % (Auto) 77.7 H Lymph % (Auto) 14.7 L [place] % (Auto) 7.0 Eos % (Auto) 0.2 Baso % (Auto) 0.2 Absolute Neuts (auto) 9.8 H Absolute Lymphs (auto) 1.85 Total Counted Not Reportable Rubella IgG Antibody 83.9 Blood Type B POSITIVE Antibody Screen NEGATIVE 12/09/18 05:40 WBC 12.6 H RBC 3.32 L Hgb 10.1 L Hct 30.9 L MCV 93.1 MCH 30.4 MCHC 32.7 RDW 13.0 RDW Differential 43.0 Plt Count 277 MPV 9.4 Immature Gran % (Auto) Neut % (Auto) Lymph % (Auto) [place] % (Auto) Eos % (Auto) Baso % (Auto) Absolute Neuts (auto) Absolute Lymphs (auto) Total Counted Rubella IgG Antibody Blood Type Antibody Screen Medical Necessity - Tobacco Use Smoking Status: Current every day smoker Assessment/Plan All Active Problems Encounter for sterilization (Acute) Decreased movement (Acute) 37 weeks gestation of (Acute) IUGR (intrauterine growth restriction) (Acute) This is a 23 year-old, G [2], P [2] POD#1 s/p PLTCS with BTL doing well. -Rh positive -Routine postop care -d/c wayne today, OOB -Cool back for back
[2018-12-09] MEDS: oxyCODONE 5 MG Tablet PO ×3 (10:23→18:47)
[2018-12-09] MEDS: Ibuprofen 600 MG Tablet PO ×2 (12:07→18:07)
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
--- NOTE | 2018-12-09 16:39 | CASEMGMT ---
Social Work Labor and Delivery Unit [place] post[place] depression screen was completed with this patient/mother of baby (MOB) due to MOB having same screen during and having a score indicative of depression. MOB has not been in counseling or on medications. Rescreen today shows MOB's score is lower at a 10. Down 6 points. See attached link for details of depression screen. Full assessment done with MOB today. See additional note from thsi underwriter, dated 12.09.2018 at 1630 for details of assessment and plans. -VICKIE Corral, OLIVE KNOCKER
[2018-12-10] VITALS (10 sets, daily range): BP systolic 107–120; BP diastolic 68–80; PULSE 76–109; RESP 14–20; TEMP 36.4–37.1; O2SAT 100
[2018-12-10] MEDS: Ibuprofen 600 MG Tablet PO ×3 (00:14→19:54)
[2018-12-10] MEDS: oxyCODONE 5 MG Tablet PO ×4 (00:14→23:56)
--- NOTE | 2018-12-10 07:49 | PCM.PN.OB ---
Patient Problems: Active and Suspected Problems delivery delivered (Acute) Encounter for sterilization (Acute) Decreased movement (Acute) 37 weeks gestation of (Acute) IUGR (intrauterine growth restriction) (Acute) Subjective: Reports migraine headache radiating from back. She feels best reclined with her eyes closed. Mild relief with Oxycodone. She denies significant incisional pain. OOB, ambulating and voiding without difficulty. No flatus yet. Tolerates regular diet. Objective: AVSS - Physical Exam General: Alert, Oriented x3, Cooperative, No apparent distress HEENT: Atraumatic, Normocephalic Lungs: Clear to auscultation, Normal air movement Cardiovascular: Regular rate, Regular Rhythm, Normal S1, Normal S2 Abdomen: Bowel Sounds Present, Soft, Non Tender, Non-Distended, - - fundus firm and nontender, incisional dressing c/d/i Extremities: No edema, No Calf Tenderness Neurological: Neuro grossly intact Psych/Mental Status: Normal Affect, Appropriate, Alert and oriented to time, place, person, mood and affect Vital Signs Temp Pulse Resp BP Pulse Ox 98.7 F 86 20 H 110/71 99 12/10/18 02:05 12/10/18 02:05 12/10/18 02:05 12/10/18 02:05 12/09/18 19:44 Oxygen Delivery Method Room Air Weight: 71.9 kg Body Mass Index (BMI) 27.1 Intake and Output for Last 24 Hours 12/08/18 12/09/18 12/10/18 23:59 23:59 23:59 Intake Total 2306 / 2306 2086 / 2086 Output Total 500 / 500 1900 / 1900 Balance 1806 / 1806 186 / 186 Medical Necessity - Tobacco Use Smoking Status: Current every day smoker Assessment/Plan All Active Problems delivery delivered (Acute) Encounter for sterilization (Acute) Decreased movement (Acute) 37 weeks gestation of (Acute) IUGR (intrauterine growth restriction) (Acute) This is a 23 year-old, G [2], P [2] POD#2 s/p PLTCS with BTL -Rh positive -Routine postop care -Cool pack for back. Called Anesthesiology to discuss headache, concern for dural puncture headache. Caffeine tab ordered.
[2018-12-10] MEDS: Caffeine 200 MG Tablet 400 MG PO (08:35)
[2018-12-10] MEDS: Lactated Ringers 1,000 ML 999 ML IV (13:00)
--- NOTE | 2018-12-10 13:00 | NURSING ---
Dr. Morgan in room to do epidural blood patch at ~1343. Pt. signed consent, set at edge of bed for procedure. SL placed to left AC after attempt x3. Blood draw x2 syringes (10 cc) to Dr. Hope. Pt. tolerated procedure well. Returned to bed in supine position for 40 min. as ordered per Dr. Hope.
[2018-12-10] MEDS: Prenatal Vits Tablet 1 TABLET PO (15:48)
[2018-12-10] MEDS: Acetaminophen 500 MG Tablet 1000 MG PO (15:48)
--- NOTE | 2018-12-10 16:00 | CASEMGMT ---
Social Work Labor and Delivery Unit Summary: 1020: Called [facility] ([facility]) at [phone] and spoke with Karissa. Referral given due to substance exposed , as well as other risk factors relating to housing instability issues (essentially homeless living with friends and unable to tell this technical document writer a current address), past history with children services and case reportedly including both of the fathers to MOB?s children, and the MOB?s gap in care from 21-30 weeks. Let Karissa know that baby?s urine is negative, meconium is pending, but that MOB did have positive drug screens during . Informed of uncertainty on MOB?s actual physical address as MOB has not been able to provide and gave message numbers to reach MOB as MOB has indicated her phone is not working. Let Karissa know that has MOB is reporting intended apartment with current boyfriend Brian as being in [facility], and MOB?s last 2 children services cases also in [facility]. Per Karissa, really need more information for referral, such as where MOB is staying. Let Karissa know that this technical document writer asked MOB this several times during assessment but MOB did not have answer. 1115: Presented to MOB?s room. MOB sitting in bed talking on phone but got off when healthcare social worker entered. MOB's boyfriend Brian, and father of MOB?s first child holding baby Moustapha on chest. Provided MOB with some community resource information for [facility] and [facility]. Information on [facility] and depression also given. MOB voices interest in getting the hours for [facility] office as reports intent to file at [facility]. Confirmed where MOB has benefits through for Medicaid. [facility] Inquired if MOB has been able to get the address where MOB has been staying in [facility]. MOB reports no, but has a text out to friend Felicitas. If [place] gets back to MOB, MOB reports ?will try? to get the address. MOB asked if children services would be showing up at the house. Let MOB know that children services has not yet decided on whether to come see MOB, but that will need to know how to find MOB. During conversation MOB reports that older son has been feeling sick, and MOB worried about the baby being around sickness so early and maybe getting sick too. Called [facility] back and let Karissa know that MOB has not yet been able to provide an address. Karissa reports that once an address is known, will forward referral to the appropriate county. As this technical document writer concerned that MOB will not produce an address in a timely manner, called [facility] ([facility]) to inform that this technical document writer has a referral pending with another county but said [facility] is so far not willing to make a decision on referral until an address for MOB is obtained. Let [facility] know that MOB is identifying current benefits through [facility]. [facility] will work in confirming benefits and if accurate can take referral. 1300: Presented to MOB?s room. MOB reports still has not heard from friend so does not have address where staying. Spoke with JERSON Knight today. RN reports MOB has not shown a lot of bonding cues with the baby, though MOB has also not felt well today. MOB received a blood patch due to suspected spinal headache. 1415: Called [facility] and spoke with Cyndee in the intake department. [facility] able to confirm that MOB is getting services through [facility]. [facility] took report from this technical document writer, which included information given to [place]. Referenced referral given to [facility] this morning. Referral given due to concerns about overall social/housing instability and substance exposed . Let Cyndee know that MOB likely staying at [facility] until tomorrow, as MOB did voice to this technical document writer earlier today that does not want to go home until feeling better, as does not feel able to care for 2 kids with this much pain (from headache). [facility] to decide by the end of the work day on whether will be screening referral in or out for investigation. 1430: This technical document writer then called [facility] and spoke to Teresita. Let Teresita know that this technical document writer called [facility] and [facility] agreeing to make determination on referral based on benefits and homelessness in [facility]. 1535: Received call from Cyndee at [facility]. Referral is being screened out for investigation at this time. If additional concerns arise those concerns could be called in. Assessment: MOB has been cooperative with healthcare social worker both times in room today. MOB?s boyfriend Brian, and father to MOB?s oldest, observed holding baby today. Brian appearing gentle with baby. MOB did ask to hold baby when social in room for the second time, but after checking with nursing, it is reported to be best for MOB not to hold baby until MOB is recovered from blood patch procedure. Referral to children services made and not enough of a current concern to open a new case. Note, [facility] has identified these phone numbers as possible ways to reach MOB: [phone] (grandparents' house phone), (MOB's dad cell phone), and Brian's cell is [phone]. Plan: MOB and baby to home when medically ready for discharge with plan to go to friend?s home with baby. MOB has been given community resources lists for [facility] and [facility]; information on depression and mental health providers are included. MOB has been given [facility] information and applications. Plan to monitor for meconium drug screen results. If nursing or medical staff identify additional concerns then social work is available for consult. Otherwise, no other services requested or indicated. -KEELY Corral, STEWARD/STEWARDESS SMOKE ROOM
[2018-12-11 02:00] VITALS: BP 94/56; PULSE 85; RESP 16; TEMP 36.6; O2SAT 99
[2018-12-11] MEDS: Acetaminophen 500 MG Tablet 1000 MG PO (04:24)
[2018-12-11] MEDS: Ibuprofen 600 MG Tablet PO (08:02)
[2018-12-11 08:10] VITALS: BP 98/62; PULSE 88; RESP 16; TEMP 36.2; O2SAT 98
--- NOTE | 2018-12-11 11:06 | PN.OBGYN_ITS ---
Subjective: Patient without complaints. Tolerating diet well. Positive flatus. Breast- feeding going well. Spinal headache resolved after blood patch yesterday. - Physical Exam Vital Signs Temp Pulse Resp BP Pulse Ox 97.1 F L 88 16 98/62 98 12/11/18 08:10 12/11/18 08:10 12/11/18 08:10 12/11/18 08:10 12/11/18 08:10 Oxygen Delivery Method Room Air Weight: 158 lb 8.198 oz Body Mass Index (BMI) 27.1 Intake and Output for Last 24 Hours 12/09/18 12/10/18 12/11/18 23:59 23:59 23:59 Intake Total 2086 / 2086 Output Total 1900 / 1900 Balance 186 / 186 Medical Necessity - Tobacco Use Smoking Status: Current every day smoker Assessment/Plan All Active Problems delivery delivered (Resolved) Encounter for sterilization (Resolved) Decreased movement (Resolved) 37 weeks gestation of (Resolved) IUGR (intrauterine growth restriction) (Resolved) Doing well postoperative day #3 status post section. Will release to home with routine instructions.
--- NOTE | 2018-12-11 11:10 | DS.PCM_ITS ---
Discharge Summary Date of Admission: 12/08/18 Date of Discharge: 12/11/18 Summary: Admission diagnosis: 37 6/7wga, decreased movement, IUGR, sterilization request, prior Discharge diagnosis: 37 6/7wga, decreased movement, IUGR, sterilization request, prior Procedure: Repeat Low Transverse Cervical Section and Bilateral Tubal Occlusion HPI: Uneventful care except as above PE: Unremarkable. Hospital Course: The patient is a 23 year old who presented to [facility] at 37+ weeks gestation with the above problems. She subsequently had a repeat C- section and tubal. Postoperatively she did well demonstrating a stable HGB on POD 1 and bowel fxn by POD 2; she also had a spinal headache on postoperative day #2 which resolved with a blood patch and on postoperative day #3, the spinal headache having resolved, it was felt she was ready for discharge. Homegoing Instruction: She was instructed not to drive for several days or if using narcotic pain medication, not to put anything in the vagina for 4 weeks, not to lift >25 lbs for 6 weeks and to call the office for an appointment in 2 weeks and 6 weeks. Discharge Medications: She was given a prescription for Oxycodone and Colace and also plans to use Aleve or Motrin or Tylenol at home as needed for pain and constipation. - Physical Exam Vital Signs Temp Pulse Resp BP Pulse Ox 97.1 F L 88 16 98/62 98 12/11/18 08:10 12/11/18 08:10 12/11/18 08:10 12/11/18 08:10 12/11/18 08:10 Oxygen Delivery Method Room Air Weight: 158 lb 8.198 oz Body Mass Index (BMI) 27.1 Intake and Output for Last 24 Hours 12/09/18 12/10/18 12/11/18 23:59 23:59 23:59 Intake Total 2085 / 2085 Output Total 0 / 1899 Balance 186 / 186
[2018-12-11] MEDS: Prenatal Vits Tablet 1 TABLET PO (13:23)
[2018-12-11] MEDS: oxyCODONE 5 MG Tablet PO (14:51)
[2018-12-11 15:00] VITALS: BP 100/72; PULSE 90; RESP 16; TEMP 36.7
== END 2018-12-11 15:00 | disposition home or self-care (01) | DRG 540 ==
PROVIDERS: Admitting Provider Obstetrics & Gynecology; Referring Provider Obstetrics & Gynecology; Visit Provider Obstetrics & Gynecology
DX: O36.8130 Decreased fetal movements, third trimester, not applicable or unspecified (principal); O34.211 Maternal care for low transverse scar from previous cesarean delivery; O36.5930 Maternal care for other known or suspected poor fetal growth, third trimester, not applicable or unspecified; O99.334 Smoking (tobacco) complicating childbirth; O99.324 Drug use complicating childbirth; F12.90 Cannabis use, unspecified, uncomplicated; Z30.2 Encounter for sterilization; O89.4 Spinal and epidural anesthesia-induced headache during the puerperium; Z3A.37 37 weeks gestation of pregnancy; Z37.0 Single live birth
CPT/HCPCS: 59025; 59050; 85025; 85027; 86762; 86850; 86900; 88302; 88307; 99218; J7120; G0378; J2405